=== PATIENT | female | born 1995 | race Caucasian/White ===

== ENCOUNTER → 2019-03-20 | Outpatient (REF) | payer BC ==
[2019-03-20 18:07] LABS: BASO # 0.1 10^3/uL (0.0-0.2); BASO % 1.1 % (0.0-1.0); EOS # 0.1 10^3/uL (0.0-0.5); EOS % 2.1 % (0.0-3.0); HEMATOCRIT 43.2 % (36.0-47.0); HEMOGLOBIN 13.5 g/dl (12.0-15.5); LYMPH % 41.4 % (24.0-44.0); MEAN CORPUSCULAR HEMOGLOBIN 27.6 pg (27.0-33.0); MEAN CORPUSCULAR HGB CONC 31.3 g/dl (32.0-36.5); MEAN CORPUSCULAR VOLUME 88.3 fl (80.0-96.0); MONO # 0.4 10^3/uL (0.0-0.8); NEUTROPHILS # 2.2 10^3/uL (1.5-8.5); NEUTROPHILS % 46.2 % (36.0-66.0); PLATELET COUNT, AUTOMATED 308 10^3/uL (150-450); RED BLOOD COUNT 4.89 10^6/uL (4.00-5.40); WHITE BLOOD COUNT 4.8 10^3/uL (4.0-10.0)
[2019-03-20 18:29] LABS: HEMOGLOBIN A1c 5.5 %
[2019-03-20 18:46] LABS: BLOOD UREA NITROGEN 9 MG/DL (7-18); CARBON DIOXIDE LEVEL 28 MEQ/L (21-32); CHLORIDE LEVEL 107 MEQ/L (98-107); CHOLESTEROL LEVEL 232 MG/DL (<200); CHOLESTEROL RISK RATIO 3.682 (<5); CREATININE FOR GFR 0.85 MG/DL (0.55-1.30); FREE T3 3.4 PG/ML (2.2-4.0); FREE T4 1.34 NG/DL (0.76-1.46); GLOMERULAR FILTRATION RATE > 60.0 (>60); GLUCOSE, FASTING 75 MG/DL (70-100); HDL CHOLESTEROL 63 MG/DL (>40); LDL CHOLESTEROL 150 MG/DL (<100); NON-HDL-C 169 MG/DL; POTASSIUM SERUM 4.4 MEQ/L (3.5-5.1); SODIUM LEVEL 141 MEQ/L (136-145); TRIGLYCERIDES LEVEL 94 MG/DL (<150)
[2019-03-22 11:27] LABS: THYROGLOBULIN ANTIBODY 77.3 U/ML (<60.0); THYROID PEROXIDASE ANTIBODY > 1300.0 U/ML (<60.0)
== END ==
LOC: M SFHCADAM 09:19
PROVIDERS: ATTEND Physician Assistant
DX: E06.3 Autoimmune thyroiditis (principal); Z00.00 Encounter for general adult medical examination without abnormal findings; Z13.1 Encounter for screening for diabetes mellitus; Z13.220 Encounter for screening for lipoid disorders

== ENCOUNTER → 2019-07-26 | Outpatient (REF) | payer BC ==
[~2019-07-26] MED LIST: PREN29TA4 PO
[2019-07-26 17:31] LABS: HCG, SERUM QUALITATIVE POSITIVE (NEGATIVE)
== END ==
LOC: M SFHCPLAZ 15:29
PROVIDERS: ATTEND Physician Assistant
DX: Z32.01 Encounter for pregnancy test, result positive (principal)

== ENCOUNTER 2019-07-31 17:04 | Emergency (ER) | payer BC ==
[~2019-07-31] VITALS: Ht 167.6 cm; Wt 66.3 kg
[2019-07-31] MEDS ORDERED: PREN29TA4 PO (17:08)
[2019-07-31 17:29] LABS: BASO % 0.6 % (0.0-1.0); EOS % 0.6 % (0.0-3.0); HEMATOCRIT 38.4 % (36.0-47.0); HEMOGLOBIN 12.7 g/dl (12.0-15.5); LYMPH # 2.3 10^3/uL (1.5-5.0); LYMPH % 34.6 % (24.0-44.0); MEAN CORPUSCULAR HEMOGLOBIN 28.6 pg (27.0-33.0); MEAN CORPUSCULAR HGB CONC 33.1 g/dl (32.0-36.5); MEAN CORPUSCULAR VOLUME 86.5 fl (80.0-96.0); MONO # 0.5 10^3/uL (0.0-0.8); MONO % 6.7 % (0.0-5.0); NEUTROPHILS # 3.9 10^3/uL (1.5-8.5); NEUTROPHILS % 57.4 % (36.0-66.0); PLATELET COUNT, AUTOMATED 300 10^3/uL (150-450); RED BLOOD COUNT 4.44 10^6/uL (4.00-5.40); WHITE BLOOD COUNT 6.7 10^3/uL (4.0-10.0)
[2019-07-31 17:58] LABS: BLOOD UREA NITROGEN 7 MG/DL (7-18); CALCIUM LEVEL 9.5 MG/DL (8.5-10.1); CARBON DIOXIDE LEVEL 28 MEQ/L (21-32); CHLORIDE LEVEL 104 MEQ/L (98-107); CREATININE FOR GFR 0.77 MG/DL (0.55-1.30); GLOMERULAR FILTRATION RATE > 60.0 (>60); GLUCOSE, FASTING 89 MG/DL (70-100); HCG, SERUM QUANTITATIVE 949 MIU/ML; POTASSIUM SERUM 3.5 MEQ/L (3.5-5.1); SODIUM LEVEL 137 MEQ/L (136-145)
--- NOTE | 2019-07-31 20:15 | REPVR ---
PROCEDURE INFORMATION: Exam: US First Trimester, Transabdominal and US , Transvaginal Exam date and time: 07/31/2019 7:54 PM Age: 23 years old Clinical indication: Lmp or gestational age (in weeks): 6; Other: Vag bleeding; TECHNIQUE: Imaging protocol: Real-time transabdominal obstetrical ultrasound of the maternal pelvis and a first trimester , less than 14 weeks 0 days, with image documentation. Transvaginal imaging was used for better evaluation of the fetus and adnexa. COMPARISON: No relevant prior studies available. FINDINGS: Gestation: See "Uterus" finding. Heart rate: Not applicable BIOMETRY: Estimated gestational age: 6 weeks based on LMP of 06/19/2019 MATERNAL: Uterus: Uterus measures 6.6 x 3 x 4.6 cm. Endometrial echo complex measures 6.6 mm. Small cystic foci demonstrated within the endometrial echo complex. No gestational sac demonstrated. Cervix: Unremarkable. Right adnexa: Right ovary measures 2.9 x 1.2 x 2.2 cm. Left adnexa: Left ovary measures 4.4 x 3.1 x 2.5 cm. Simple cyst measures 2.1 x 2.4 x 2.8 cm, likely functional. Complex partially cystic lesion measures 1.8 x 1.6 x 1.8 cm, likely representing a corpus luteum less likely a hemorrhagic ovarian cyst. Intraperitoneal space: No intraperitoneal free fluid. IMPRESSION: Empty uterus in a patient with a weakly positive beta HCG. Findings may indicate very early IUP prior to visualization of a gestational sac or fetus. Correlation with serial beta-hCG levels and follow ultrasound recommended in order to exclude ectopic verses very early or early failure. Electronically signed by: Tanvir Hernandez On 07/31/2019 20:15:34 PM
[2019-07-31] MEDS ORDERED: RHOGAM 300 MCG (1500 IU) INJ (J2790) IM ONE (20:45)
[2019-07-31 22:21] VITALS: BP 101/62
== END 2019-07-31 22:24 | disposition home or self-care (01) ==
LOC: M ED 17:04
DX: O20.0 Threatened abortion (principal); Z3A.01 Less than 8 weeks gestation of pregnancy
CPT/HCPCS: 36415; 76801; 76817; 80048; 81001; 84702; 85025; 86850; 86900; 86901; 93976; 96372; 99283; J2790

== ENCOUNTER → 2019-08-02 | Outpatient (CLI) | payer OTHER | LOC: M LAB 09:07 | PROVIDERS: ATTEND Obstetrics & Gynecology | DX: O20.0 Threatened abortion (principal) ==

== ENCOUNTER → 2019-08-04 | Outpatient (REF) | payer OTHER ==
[2019-08-04 16:52] LABS: FREE T4 1.28 NG/DL (0.76-1.46); THYROID STIMULATING HORMONE 1.65 uIU/ML (0.358-3.740)
== END ==
LOC: M SFHCPLAZ 16:07
PROVIDERS: ATTEND Physician Assistant
DX: O20.9 Hemorrhage in early pregnancy, unspecified (principal); E06.3 Autoimmune thyroiditis

== ENCOUNTER → 2019-08-09 | Outpatient (REF) | payer BC | LOC: M LAB REF 12:57 | PROVIDERS: ATTEND Physician Assistant | DX: O20.9 Hemorrhage in early pregnancy, unspecified (principal) ==

== ENCOUNTER → 2019-08-16 | Outpatient (CLI) | payer OTHER ==
--- NOTE | 2019-08-16 16:17 | REP ---
FIRST TRIMESTER OBSTETRIC SONOGRAPHY: HISTORY: Vaginal bleeding. Positive test. FINDINGS: Transabdominal and transvaginal scanning are performed. A single living intrauterine gestation is seen. The embryonic pole measures 4 mm in crown-rump length. This corresponds with a gestational age estimate of 6 weeks 1 day. heart rate is recorded at 98 beats per minute. There is a hypoechoic area adjacent to the gestational sac measuring 9 x 6 x 6 mm . This may correspond to a small subchorionic hemorrhage. There is a cyst in the maternal left ovary measuring 1.1 cm in greatest diameter, consistent with corpus luteum. A yolk sac is visible in the gestational sac as well. IMPRESSION: Viable single intrauterine gestation at 6 weeks 1 day by crown-rump length. HEMANTH by sonography April 09, 2020. Small 9 mm subchorionic fluid collection.
== END ==
LOC: M WHC 14:02
PROVIDERS: ATTEND Physician Assistant
DX: Z32.01 Encounter for pregnancy test, result positive (principal); O20.9 Hemorrhage in early pregnancy, unspecified; Z3A.01 Less than 8 weeks gestation of pregnancy

== ENCOUNTER → 2019-08-26 | Outpatient (REF) | payer OTHER ==
[~2019-08-26] MED LIST changes: +AUGM875T28 PO
== END ==
LOC: M PLALAB 13:55
PROVIDERS: ATTEND Advanced Practice Midwife
DX: O02.1 Missed abortion (principal)

== ENCOUNTER → 2019-09-16 | Outpatient (REF) | payer OTHER | LOC: M SFHCWAGY 11:31 | PROVIDERS: ATTEND Advanced Practice Midwife | DX: O03.9 Complete or unspecified spontaneous abortion without complication (principal) ==

== ENCOUNTER → 2019-10-20 | Outpatient (REF) | payer OTHER ==
[2019-10-20 19:12] LABS: HCG, SERUM QUALITATIVE POSITIVE (NEGATIVE)
[2019-10-20 20:03] LABS: HCG, SERUM QUANTITATIVE 12 MIU/ML; TOTAL T3 137.4 NG/DL (60.0-181.0)
== END ==
LOC: M LAB REF 17:49
PROVIDERS: ATTEND Nurse Practitioner Family
DX: Z32.00 Encounter for pregnancy test, result unknown (principal)

== ENCOUNTER → 2019-10-22 | Outpatient (REF) | payer OTHER | LOC: M LAB REF 11:54 | PROVIDERS: ATTEND Nurse Practitioner Family | DX: Z32.00 Encounter for pregnancy test, result unknown (principal) ==

== ENCOUNTER 2019-10-26 22:01 | Emergency (ER) | payer OTHER ==
[~2019-10-26] VITALS: Ht 170.2 cm; Wt 64.6 kg
[~2019-10-26 22:01] MED LIST changes: -AUGM875T28 PO
[2019-10-26] MEDS ORDERED: BOOSTRIX/ADACEL VACCINE (DIPHTH/PERTUSS/ACELL/TETANUS) 0.5ML SYR IM ONE (23:15)
[2019-10-26] MEDS ORDERED: LIDOCAINE 1% MDV 20ML VIAL SC ONE (23:15)
[2019-10-27] MEDS ORDERED: AUGM875T28 PO (00:09)
[2019-10-27] MEDS ORDERED: AUGMENTIN 875 MG TAB PO ONE (00:15)
[2019-10-27 00:27] VITALS: BP 123/76
== END 2019-10-27 00:29 | disposition home or self-care (01) ==
LOC: M ED 22:01
DX: S61.402A Unspecified open wound of left hand, initial encounter (principal); W54.0XXA Bitten by dog, initial encounter; Y92.003 Bedroom of unspecified non-institutional (private) residence as the place of occurrence of the external cause; E06.3 Autoimmune thyroiditis; Z79.899 Other long term (current) drug therapy

== ENCOUNTER → 2019-12-10 | Outpatient (REF) | payer OTHER ==
[~2019-12-10] MED LIST changes: +AUGM875T28 PO
[2019-12-10 13:29] LABS: HCG, SERUM QUALITATIVE POSITIVE (NEGATIVE)
[2019-12-10 13:31] LABS: HCG, SERUM QUANTITATIVE 71 MIU/ML
== END ==
LOC: M LAB REF 12:37
PROVIDERS: ATTEND Nurse Practitioner Family
DX: Z32.00 Encounter for pregnancy test, result unknown (principal)

== ENCOUNTER → 2019-12-13 | Outpatient (REF) | payer OTHER ==
[2019-12-13 12:32] LABS: FREE T3 3.5 PG/ML (2.2-4.0); FREE T4 1.13 NG/DL (0.76-1.46); THYROID STIMULATING HORMONE 2.83 uIU/ML (0.358-3.740)
== END ==
LOC: M LAB REF 11:07
PROVIDERS: ATTEND Physician Assistant
DX: R94.6 Abnormal results of thyroid function studies (principal)

== ENCOUNTER → 2019-12-13 | Outpatient (REF) | payer OTHER ==
[2019-12-13 12:27] LABS: HCG, SERUM QUANTITATIVE 290 MIU/ML
[2019-12-13 12:29] LABS: TESTOSTERONE 31 NG/DL (14-76)
[2019-12-14 08:09] LABS: LEAD BLOOD ADULT <1 ug/dL (0-4); TOXOPLASMA IgG ABY <3.0 IU/mL (0.0-7.1)
== END ==
LOC: M LAB REF 11:08
PROVIDERS: ATTEND Nurse Practitioner Family
DX: Z01.89 Encounter for other specified special examinations (principal)

== ENCOUNTER → 2020-01-05 | Outpatient (REF) | payer OTHER ==
[2020-01-05 13:25] LABS: FREE T3 3.3 PG/ML (2.2-4.0); FREE T4 1.21 NG/DL (0.76-1.46); THYROID STIMULATING HORMONE 1.6 uIU/ML (0.358-3.740)
== END ==
LOC: M LAB REF 12:41
PROVIDERS: ATTEND Physician Assistant
DX: R94.6 Abnormal results of thyroid function studies (principal)

== ENCOUNTER → 2020-01-07 | Outpatient (CLI) | payer OTHER ==
--- NOTE | 2020-01-07 16:48 | REP ---
INDICATION: . Supervision of normal COMPARISON: No pertinent priors TECHNIQUE: Transvesical imaging. FINDINGS: Within the uterus there is an anechoic structure with increased echoes surrounding it consistent with a decidual reaction. Within the gestational sac there is echogenic material consistent with a pole the mean crown-rump length measurement of which is consistent with a 7 week 5 day gestational age. Based on that the estimated date of delivery is 08/20/2020. Doppler interrogation of the heart is a heart rate of 156 beats per minute. A tiny anechoic structure was seen within the gestational sac consistent with a yolk sac. Evaluation of the maternal adnexal spaces showed no gross abnormalities. IMPRESSION: Early OB ultrasound as described above. <Electronically signed by Sylvester Cohen > 01/07/20 [id number]
== END ==
LOC: M WHC 13:51
PROVIDERS: ATTEND Obstetrics & Gynecology
DX: Z34.91 Encounter for supervision of normal pregnancy, unspecified, first trimester (principal); Z3A.01 Less than 8 weeks gestation of pregnancy

== ENCOUNTER → 2020-01-26 | Outpatient (CLI) | payer OTHER ==
--- NOTE | 2020-01-26 16:29 | REP ---
INDICATION: VIABILITY. COMPARISON: Comparison sonography January 07, 2020.. TECHNIQUE: Transabdominal scanning. FINDINGS: Scanning through the urine filled bladder and gravid uterus demonstrates a single living intrauterine gestation in a free-floating lie. The crown-rump length of the embryonic pole is 35 mm long. This corresponds with a gestational age estimate of 10 weeks 3 days. heart rate is recorded at 179 beats per minute. Closed cervical length is 3.7 cm view transabdominally. The placenta is predominantly posterior. No extra uterine abnormality is observed. IMPRESSION: Viable single intrauterine gestation at 10 weeks 3 days by today's composite sonographic criteria. HEMANTH by today's sonography August 20, 2020. No complication identified. <Electronically signed by Juan Diego De Luna > 01/26/20 [id number]
== END ==
LOC: M WHC 12:59
PROVIDERS: ATTEND Obstetrics & Gynecology
DX: Z34.90 Encounter for supervision of normal pregnancy, unspecified, unspecified trimester (principal); Z3A.10 10 weeks gestation of pregnancy

== ENCOUNTER → 2020-01-31 | Outpatient (CLI) | payer OTHER ==
[2020-01-31 17:26] LABS: AMORPHOUS SEDIMENT SMALL (NEGATIVE); APPEARANCE, URINE HAZY (CLEAR); BACTERIA, URINE AUTO NEGATIVE (NEGATIVE); BILIRUBIN, URINE AUTO NEGATIVE (NEGATIVE); BLOOD, URINE BLOOD NEGATIVE (NEGATIVE); COLOR, URINE YELLOW (YELLOW); GLUCOSE, URINE (UA) AUTO NEGATIVE (NEGATIVE); KETONE, URINE AUTO NEGATIVE (NEGATIVE); LEUKOCYTE ESTERASE, URINE AUTO NEGATIVE (NEGATIVE); MUCUS, URINE SMALL (NEGATIVE); NITRITE, URINE AUTO NEGATIVE (NEGATIVE); PROTEIN, URINE AUTO NEGATIVE (NEGATIVE); RBC, URINE AUTO 1 /HPF (0-3); SPECIFIC GRAVITY URINE AUTO 1.015 (1.002-1.035); SQUAMOUS EPITHELIAL CELL UR AU 0 /HPF (0-6); UROBILINOGEN, URINE AUTO 0.2 mg/dL (0.0-2.0); WBC, URINE AUTO 1 /HPF (0-3)
[2020-01-31 17:31] LABS: BASO % 0.5 % (0.0-1.0); EOS # 0.1 10^3/uL (0.0-0.5); EOS % 0.7 % (0.0-3.0); HEMOGLOBIN 11.6 g/dl (12.0-15.5); LYMPH # 2.4 10^3/uL (1.5-5.0); LYMPH % 31.6 % (24.0-44.0); MEAN CORPUSCULAR HEMOGLOBIN 29.4 pg (27.0-33.0); MEAN CORPUSCULAR HGB CONC 34.1 g/dl (32.0-36.5); MEAN CORPUSCULAR VOLUME 86.3 fl (80.0-96.0); MONO # 0.4 10^3/uL (0.0-0.8); MONO % 5.9 % (0.0-5.0); NEUTROPHILS # 4.6 10^3/uL (1.5-8.5); PLATELET COUNT, AUTOMATED 247 10^3/uL (150-450); RED BLOOD COUNT 3.94 10^6/uL (4.00-5.40); WHITE BLOOD COUNT 7.5 10^3/uL (4.0-10.0)
[2020-01-31 18:16] LABS: HEPATITIS B SURFACE ANTIGEN NEGATIVE (NEGATIVE)
[2020-01-31 18:44] LABS: HEPATITIS C VIRUS ABY INDEX 0.1 INDEX (<0.8); HIV 1&2 SCREEN CENTAUR NEGATIVE (NEGATIVE)
[2020-02-02 06:11] LABS: HERPES ZOSTER, VARICELLA IgG <135 index (Immune >165); LEAD BLOOD ADULT <1 ug/dL (0-4)
== END ==
LOC: M LAB 16:25
PROVIDERS: ATTEND Obstetrics & Gynecology
DX: Z34.80 Encounter for supervision of other normal pregnancy, unspecified trimester (principal)

== ENCOUNTER → 2020-02-23 | Outpatient (REF) | payer OTHER ==
[2020-02-23 13:42] LABS: FREE T4 1.17 NG/DL (0.76-1.46); THYROID STIMULATING HORMONE 1.71 uIU/ML (0.358-3.740)
== END ==
LOC: M LAB REF 12:15
PROVIDERS: ATTEND Physician Assistant
DX: R94.6 Abnormal results of thyroid function studies (principal)

== ENCOUNTER → 2020-04-03 | Outpatient (CLI) | payer OTHER ==
--- NOTE | 2020-04-04 09:00 | REP ---
INDICATION: ANATOMY. COMPARISON: Comparison sonography 26 January 2020.. TECHNIQUE: Transabdominal obstetric sonography. FINDINGS: Scanning through the gravid uterus demonstrates a viable single intrauterine gestation in cephalic lie. motion is observed and heart rate is recorded at 158 beats per minute. A anterior placenta is seen, grade 1, without evidence of placenta previa. Closed cervical length is measured at 3.5 cm transabdominally. No extrauterine abnormality is observed. Amniotic fluid is subjectively normal. Four-chamber heart view is less than optimally achieved due to position. The following additional anatomic structures are identified felt to be unremarkable: cranium, intracranial contents, left and right ventricular outflow tract views, diaphragm, left-sided stomach, abdominal wall cord insertion, right and left kidney, urinary bladder, spine, upper and lower extremities, three-vessel cord and.. Biometry chart: 4.9 cm, 20 weeks 6 days Head circumference 17.9 cm, 20 weeks 2 days Abdominal circumference 15.5 cm, 20 weeks 5 days femur length 3.5 cm, 21 weeks 0 days Humeral length 3.2 cm, 20 weeks 6 days HC AC ratio normal 1.16 Cephalic index normal 0.76 Estimated weight 375 g, 0 lb 13 oz, 81st percentile for 20 weeks 1 day IMPRESSION: Viable single intrauterine gestation at 20 weeks 5 days by today's composite sonographic criteria. HEMANTH by today's sonography 16 August 2020. No complication identified. Expected gestational age estimate based on prior sonography is 20 weeks 1 day. HEMANTH by prior sonography 20 August 2020. <Electronically signed by Juan Diego De Luna > 04/04/20 [id number]
== END ==
LOC: M WHC 13:52
PROVIDERS: ATTEND Obstetrics & Gynecology
DX: Z36.89 Encounter for other specified antenatal screening (principal); Z3A.20 20 weeks gestation of pregnancy

== ENCOUNTER → 2020-04-18 | Outpatient (REF) | payer OTHER ==
[2020-04-18 12:53] LABS: FREE T4 0.85 NG/DL (0.76-1.46); THYROID STIMULATING HORMONE 1.37 uIU/ML (0.358-3.740); TOTAL T3 188.9 NG/DL (60.0-181.0)
== END ==
LOC: M LAB REF 11:43
PROVIDERS: ATTEND Nurse Practitioner Family
DX: E06.3 Autoimmune thyroiditis (principal)

== ENCOUNTER → 2020-04-24 | Outpatient (REF) | payer OTHER ==
[2020-04-24 19:50] LABS: HEPATITIS A ANTIBODY IGM NEGATIVE (NEGATIVE); HEPATITIS B CORE ANTIBODY IGM NEGATIVE (NEGATIVE); HEPATITIS B SURFACE ANTIBODY NEGATIVE (POSITIVE); HEPATITIS B SURFACE ANTIGEN NEGATIVE (NEGATIVE); HEPATITIS C VIRUS ABY INDEX < 0.0 INDEX (<0.8); HIV 1&2 SCREEN CENTAUR NEGATIVE (NEGATIVE)
== END ==
LOC: M LAB REF 16:31
PROVIDERS: ATTEND Nurse Practitioner Family
DX: Z77.21 Contact with and (suspected) exposure to potentially hazardous body fluids (principal)

== ENCOUNTER → 2020-12-06 | Outpatient (REF) | payer OTHER ==
[2020-12-06 15:40] LABS: FREE T4 1.56 NG/DL (0.76-1.46); THYROID STIMULATING HORMONE < 0.005 uIU/ML (0.358-3.740)
[2020-12-06 15:42] LABS: THYROID PEROXIDASE ANTIBODY > 1300.0 U/ML (<60.0)
== END ==
LOC: M LAB REF 14:35
PROVIDERS: ATTEND Physician Assistant
DX: R94.6 Abnormal results of thyroid function studies (principal)

== ENCOUNTER → 2021-01-04 | Outpatient (REF) | payer OTHER ==
[2021-01-04 16:02] LABS: FREE T4 0.81 NG/DL (0.76-1.46); THYROID STIMULATING HORMONE 9.17 uIU/ML (0.358-3.740)
== END ==
LOC: M LAB REF 14:59
PROVIDERS: ATTEND Physician Assistant
DX: E05.90 Thyrotoxicosis, unspecified without thyrotoxic crisis or storm (principal)

== ENCOUNTER → 2021-02-02 | Outpatient (REF) | payer OTHER ==
[2021-02-02 14:34] LABS: FREE T4 0.98 NG/DL (0.76-1.46); THYROID STIMULATING HORMONE 3.81 uIU/ML (0.358-3.740)
== END ==
LOC: M LAB REF 12:25
PROVIDERS: ATTEND Physician Assistant
DX: R94.6 Abnormal results of thyroid function studies (principal)

== ENCOUNTER → 2021-05-17 | Outpatient (REF) | payer OTHER ==
[2021-05-17 13:53] LABS: FREE T4 1.28 NG/DL (0.76-1.46); THYROID STIMULATING HORMONE 1.17 uIU/ML (0.358-3.740); TOTAL T3 109.2 NG/DL (60.0-181.0)
== END ==
LOC: M LAB REF 11:51
PROVIDERS: ATTEND Nurse Practitioner Family
DX: E06.3 Autoimmune thyroiditis (principal)

== ENCOUNTER → 2022-03-08 | Outpatient (REF) | payer OTHER ==
[2022-03-08 13:20] LABS: HEMATOCRIT 38.5 % (36.0-47.0); HEMOGLOBIN 12.7 g/dl (12.0-15.5); MEAN CORPUSCULAR HEMOGLOBIN 29.3 pg (27.0-33.0); MEAN CORPUSCULAR VOLUME 88.9 fl (80.0-96.0); PLATELET COUNT, AUTOMATED 265 10^3/uL (150-450); RED BLOOD COUNT 4.33 10^6/uL (4.00-5.40)
[2022-03-08 13:43] LABS: HCG, SERUM QUANTITATIVE 334.6 MIU/ML (<4.2)
[2022-03-08 13:46] LABS: TOTAL T3 151.2 NG/DL (60.0-181.0)
[2022-03-08 13:47] LABS: THYROID STIMULATING HORMONE 2.296 uIU/ML (0.55-4.78)
[2022-03-08 13:48] LABS: FREE T4 1.21 NG/DL (0.89-1.76)
== END ==
LOC: M LAB REF 12:29
PROVIDERS: ATTEND Nurse Practitioner Family
DX: Z34.92 Encounter for supervision of normal pregnancy, unspecified, second trimester (principal)

== ENCOUNTER → 2022-03-11 | Outpatient (REF) | payer OTHER | LOC: M LAB REF 12:57 | PROVIDERS: ATTEND Nurse Practitioner Family | DX: Z34.81 Encounter for supervision of other normal pregnancy, first trimester (principal) ==

== ENCOUNTER → 2022-03-13 | Outpatient (REF) | payer OTHER | LOC: M LAB REF 13:39 | PROVIDERS: ATTEND Nurse Practitioner Family | DX: Z34.92 Encounter for supervision of normal pregnancy, unspecified, second trimester (principal) ==